=== PATIENT | female | born 1985 | race Caucasian/White ===

== ENCOUNTER → 2017-07-04 | Outpatient (CLI) | payer OTHER ==
[~2017-07-04] MED LIST: ATIVAN1 MG PO; FISH OIL 1,001000 M2 PO; NORCO 5-325 TA1 EACH PO; VALIUM5 MG PO
== END ==
LOC: ULTRA 10:00
DX: C50.411 Malignant neoplasm of upper-outer quadrant of right female breast (principal); Z17.1 Estrogen receptor negative status [ER-]